=== PATIENT | male | born 1990 | race Caucasian/White ===

== ENCOUNTER 2020-07-07 18:38 | Emergency (ER) | payer OTHER ==
--- NOTE | 2020-07-07 18:40 | ERPHSYRPT ---
- History of Present Illness Time Seen by Provider: 07/07/20 18:40 Historian: patient Exam Limitations: no limitations Physician History: This is a morbidly obese 30-year-old white male who states that he has some right flank pain and it radiates around anteriorly in the right upper quadrant area. He stated he did not fall or have traumatic injury. However he did twist and felt the popping sensation followed by worsening pain. He has not had any urinary symptoms. But he was concerned when the right flank pain worsened with the popping sensation as well as a traveling around to his right side of his abdomen. He has had no fever chills or nausea vomiting or diarrhea. He has never had anything like this before. Timing/Duration: week(s) Quality: sharpness, stabbing Pain Radiation: RUQ Severity of Pain-Max: moderate Severity of Pain-Current: moderate Modifying Factors: Improves With: movement Associated Symptoms: denies symptoms Previous symptoms: no prior history Allergies/Adverse Reactions: No Known Drug Allergies Allergy (Verified 07/07/20 18:48) Home Medications: Amlodipine Besylate 5 mg [Norvasc 5 mg] 5 mg DAILY 10/11/15 [History] Venlafaxine HCl [Effexor] 25 mg PO DAILY 10/11/15 [History] Benazepril HCl [Lotensin] 20 mg PO DAILY 07/07/20 [History] Rosuvastatin Calcium 10 mg PO DAILY 07/07/20 [History] Tramadol HCl 50 mg [Ultram 50 mg] 50 mg PO DAILY 07/07/20 [History] Hx Tetanus, Diphtheria Vaccination/Date Given: No (10 years) Travel Risk - International Travel Have you traveled outside of the country in past 3 weeks: No - Coronavirus Screening Are you exhibiting any of the following symptoms?: No Close contact with a COVID-19 positive Pt in past 14-21 Days: No - Review of Systems Constitutional: No Symptoms Eyes: No Symptoms Ears, Nose, & Throat: No Symptoms Respiratory: No Symptoms Cardiac: No Symptoms Abdominal/Gastrointestinal: Abdominal Pain (Flank pain radiating to the right upper quadrant and right mid abdomen anteriorly) Genitourinary Symptoms: Flank Pain Musculoskeletal: No Symptoms Skin: No Symptoms Neurological: No Symptoms Psychological: No Symptoms Endocrine: No Symptoms Hematologic/Lymphatic: No Symptoms Immunological/Allergic: No Symptoms All Other Systems: Reviewed and Negative - Past Medical History Pertinent Past Medical History: Yes Neurological History: Peripheral Neuropathy Cardiac History: Hypertension Respiratory History: Asthma Endocrine Medical History: No Pertinent History Musculoskeletal History: Osteoarthritis Other Medical History: OA of the R knee - Past Surgical History Past Surgical History: Yes Musculoskeletal: Orthopedic Surgery Other Surgical History: right knee scope - Social History Smoking Status: Never smoker Exposure to second hand smoke: No Drug Use: none Patient Lives Alone: No - Nursing Vital Signs Nursing Vital Signs: Initial Vital Signs Temperature 99.3 F 07/07/20 18:43 Pulse Rate 109 H 07/07/20 18:43 Respiratory Rate 20 07/07/20 18:43 Blood Pressure 162/102 07/07/20 18:43 O2 Sat by Pulse Oximetry 98 07/07/20 18:43 Pain Scale Pain Intensity 7 - Physical Exam General Appearance: no apparent distress, alert, anxiety, obese Eye Exam: PERRL/EOMI, eyes nml inspection Ears, Nose, Throat Exam: normal ENT inspection, moist mucous membranes Neck Exam: normal inspection, non-tender, supple, full range of motion Respiratory Exam: normal breath sounds, lungs clear, airway intact, No chest tenderness, No respiratory distress Cardiovascular Exam: normal peripheral pulses, tachycardia Gastrointestinal/Abdomen Exam: soft, normal bowel sounds, tenderness (Mild right upper quadrant and right lateral abdomen with palpation), guarding Rectal Exam: not done Back Exam: normal inspection, normal range of motion, CVA tenderness, No vertebral tenderness Extremity Exam: normal inspection, normal range of motion, pelvis stable Neurologic Exam: alert, oriented x 3, cooperative, caseworker II-XII nml as tested, normal mood/affect, nml cerebellar function, nml station & gait, sensation nml Skin Exam: normal color, warm, dry Lymphatic Exam: No adenopathy SpO2 Interpretation: normal O2 Delivery: Room Air Ordered Tests: Active Orders 24 hr Category Date Time Status ABDOMEN AND PELVIS W/0 CONTRAS [CT] Stat Exams 07/07/20 19:21 Taken UA W/RFX UR CULTURE Stat Lab 07/07/20 20:13 Completed Lab/Rad Data: Laboratory Results 07/07/20 Range/Units 20:13 Urine Color YELLOW (YELLOW) Urine Appearance CLEAR (CLEAR) Urine pH 6.0 (5-6) Ur Specific [place] 1.017 (1.005-1.025) Urine Protein NEGATIVE (Negative) Urine Ketones NEGATIVE (NEGATIVE) Urine Blood NEGATIVE (0-5) [place]/ul Urine Nitrite NEGATIVE (NEGATIVE) Urine Bilirubin NEGATIVE (NEGATIVE) Urine Urobilinogen NEGATIVE (0-1) mg/dL Ur Leukocyte Esterase NEGATIVE (NEGATIVE) Urine WBC (Auto) NONE (0-5) /HPF Urine RBC (Auto) NONE (0-2) /HPF U Epithel Cells (Auto) NONE (FEW) /HPF Urine Bacteria (Auto) NONE (NEGATIVE) /HPF Urine Mucus (Auto) SLIGHT (NEGATIVE) /HPF Urine Culture Reflexed NO (NO) Urine Glucose NEGATIVE (NEGATIVE) mg/dL - Progress Progress: unchanged, pain not gone completely, re-examined Progress Note: 07/07/20 20:39 CAT scan of the abdomen and pelvis shows no renal calculus or evidence of obstructive uropathy. Appendix is seen and it is normal. There is mild fecal stasis right hemicolon. Counseled pt/family regarding: diagnosis, need for follow-up, rad results - Departure Departure Disposition: Home Clinical Impression: Musculoskeletal pain Condition: Stable Critical Care Time: No Referrals: MANA MCCALL [Primary Care Provider] - Additional Instructions: Drink plenty of fluids. Fill your prescriptions tomorrow and take as prescribed. Follow-up with your primary care physician for further management. Increase your tramadol to 3 times a day starting tomorrow afternoon. Do this for 48 hours. Prescriptions: Carisoprodol 350 mg [Soma 350 mg] 350 mg PO Q8H PRN PRN #10 tablet PRN Reason: Muscle Spasms Naproxen 500 mg [Naprosyn 500 MG] 500 mg PO BID #10 tablet
[2020-07-07 20:32] LABS: Appearance CLEAR (CLEAR); Bilirubin NEGATIVE (NEGATIVE); Blood NEGATIVE Ery/ul (0-5); Glucose NEGATIVE (NEGATIVE); Ketones NEGATIVE (NEGATIVE); Leukocyte Esterase NEGATIVE (NEGATIVE); Mucus SLIGHT /HPF (NEGATIVE); Nitrite NEGATIVE (NEGATIVE); Protein,Urine Dip NEGATIVE (Negative); Specific Gravity 1.017 (1.005-1.025); Urobilinogen NEGATIVE mg/dL (0-1)
[2020-07-07] MEDS ORDERED: NORCO 5/325 MG PO ONE (20:43)
[2020-07-07] MEDS ORDERED: NORCO 5/325 MG ONE (20:52)
[2020-07-07 21:19] VITALS: BP 135/83; PULSE 93; O2SAT 97
--- NOTE | 2020-07-08 08:12 | XRAY ---
Indication: Intermittent right flank pain 2 weeks. History kidney stone. Multiple contiguous axial images obtained through the abdomen and pelvis without contrast using renal stone protocol. Comparison: None Lung bases demonstrates tiny right lower lobe and right infrahilar calcified granulomas. No infiltrate or effusion. Heart is not enlarged. No renal calculus or evidence for obstructive uropathy in either system. Noncontrasted stomach and bowel loops appear nonobstructed. Normal appendix. Mild fecal debris predominantly in the ascending and transverse colon. No free fluid/air. Fatty hepatomegaly measuring 21.1 cm and splenomegaly measuring 14.6 cm. Remaining liver, gallbladder, pancreas, spleen, adrenal glands, kidneys, ureters, bladder, and aorta are unremarkable for noncontrast exam. Osseous structures intact with mild/moderate degenerative changes throughout the thoracolumbar spine. Impression: 1. Negative renal calculus or evidence for obstructive uropathy. 2. Incidental fatty hepatomegaly, splenomegaly, multilevel degenerative spondylosis, and old granulomatous disease. 3. Remaining CT abdomen/pelvis without contrast exam is negative.
== END 2020-07-07 21:19 | disposition home or self-care (01) ==
LOC: ED 18:38
DX: M79.18 Myalgia, other site (principal); R10.9 Unspecified abdominal pain; R10.11 Right upper quadrant pain; Z79.899 Other long term (current) drug therapy; I10 Essential (primary) hypertension; G62.9 Polyneuropathy, unspecified
CPT/HCPCS: 74176; 81001; 99284; A9270-GY